=== PATIENT | male | born 1995 | race Caucasian/White ===

== ENCOUNTER 2017-10-17 20:53 | Emergency (ER) | payer BC, OTHER ==
[2017-10-17 21:02] VITALS: BP 139/81; PULSE 88; RESP 16; TEMP 99; O2SAT 96
--- NOTE | 2017-10-17 21:15 | EDPHY ---
H & P Time Seen by Provider: 10/17/17 20:57 HPI/ROS: HPI Scalp laceration. 21-year-old male. 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 He was in a match [employer] other team. He thinks he got hit in the head by another player's head and sustained a laceration to his left posterior parietal scalp. No loss of consciousness. He has had no confusion. No nausea or vomiting. He denies any other complaints. He has had a tetanus shot within the last 5 years. No neck pain or extremity pain. ROS: Constitutional: No fever, no chills. No weakness. Musculoskeletal: No back pain. No neck pain. No extremity pain. Skin: Scalp laceration as above. Neurological: No headache. No focal weakness or altered sensation. Past medical history: No past medical history. Social history: Nonsmoker. Student [employer]. Here by himself. Physical Exam: General Appearance: Alert, no distress. This patient is responding to questions appropriately and in full sentences. This patient appears well- hydrated and well-nourished. Head: Normocephalic atraumatic except for a left-sided posterior parietal non gaping elliptical 2.0 cm scalp laceration. There is no bony step-off, deformity or crepitus noted on palpation of the area of his scalp laceration. Face: Facial bones are stable on palpation. Eyes: Pupils equal and round and reactive to light, no pallor or injection. No lid erythema or edema. Neurological: Motor sensory function is intact. Cranial nerves are normal. Cerebellar function intact. Skin: Warm and dry, no rashes. As above, no abrasions or contusions. Musculoskeletal: Neck is supple and nontender. Extremities are symmetrical, full range of motion. All joints in the bilateral upper and bilateral lower extremities range without pain or impingement. Psychiatric: No agitation. No depression. Database: EKG: Imaging: Procedures: Procedure: Laceration repair. Verbal consent was obtained from the patient. The 2.0 cm non gaping laceration on the left posterior parietal scalp was anesthetized in the usual fashion. The wound was irrigated, draped and explored to its base with a gloved finger. There were no deep structures involved. No foreign body was identified. The wound was repaired with 3 percutaneous surgical janki. The wound repair was tolerated well and there were no complications. The procedure was performed by myself. Emergency department course: After suture repair is noted above wound care was discussed. Head injury precautions reviewed. The patient feels comfortable going home. He is up and ambulatory with a normal gait. He has no complaints. Follow-up was reviewed. Return to emergency department precautions discussed all of his questions were answered. He was discharged in good condition. Differential Diagnosis: The differential diagnosis on this patient includes but is not limited to scalp laceration, minor head injury. Concussion syndrome, traumatic brain injury, skull fracture, cervical spine injury, other significant traumatic injury unlikely. This represents a partial list of diagnoses considered. These considerations are based on history, physical exam, past history, reassessment and diagnostic testing. Smoking Status: Never smoked Constitutional: Initial Vital Signs Temperature (C) 37.2 C 10/17/17 20:58 Heart Rate 88 10/17/17 20:58 Respiratory Rate 16 10/17/17 20:58 Blood Pressure 139/81 H 10/17/17 20:58 O2 Sat (%) 96 10/17/17 20:58 O2 Delivery Mode Room Air Allergies/Adverse Reactions: No Known Allergies Allergy (Verified 10/17/17 20:57) Home Medications: Medication Instructions Recorded NK [No Known Home Meds] 10/17/17 Departure - Departure Disposition: Home, Routine, Self-Care Clinical Impression: Scalp laceration Condition: Good Instructions: Head Injury (ED), Staple Care (ED) Additional Instructions: Read and follow provided instructions. Follow-up with your primary care physician in 1-2 days for re-evaluation as needed. [place] are to be removed in 7-10 days. Return to the emergency department for worsening headache, confusion, nausea and vomiting or other serious concerns. Referrals: ROBERT Peterson,. [Clinic] - As per Instructions
== END 2017-10-17 21:34 | disposition home or self-care (01) ==
LOC: CED 20:53
PROC: 0HQ0XZZ Repair Scalp Skin, External Approach (ICD-10-PCS; principal; 2017-10-17)
DX: S01.01XA Laceration without foreign body of scalp, initial encounter (principal); W50.0XXA Accidental hit or strike by another person, initial encounter; Y92.214 College as the place of occurrence of the external cause; Y99.8 Other external cause status; Y93.63 Activity, rugby